=== PATIENT | male | born 1975 | race African-American/Black ===

== ENCOUNTER 2017-05-18 21:57 | Emergency (ER) | payer MEDICAID ==
[~2017-05-18] VITALS: Ht 180.3 cm; Wt 81.6 kg
--- NOTE | 2017-05-18 22:19 | Emergency Room Report ---
History of Present Illness General Chief Complaint: Vomiting Source: Patient, EMS Present Illness HPI 42-year-old male brought in by ambulance with 2 days of nausea vomiting and generalized abd pain Also assoc with diarrhea Denies fever/chills, sick contacts No recent foreign travel No prior abd surgery Denies drug use Allergies: Coded Allergies: No Known Allergies (Unverified , 05/18/17) Patient History Past Medical History: none Past Surgical History: none Pertinent Family History: none Social History: Denies: smoking, alcohol use, drug use Immunizations: UTD Reviewed Nursing Documentation: PMH: Agreed, PSxH: Agreed Nursing Documentation-PMH Past Medical History: No Stated History Review of Systems All Other Systems: negative except mentioned in HPI Physical Exam Vital Signs Date Time Temp Pulse Resp B/P (MAP) Pulse Ox O2 Delivery O2 Flow Rate FiO2 05/18/17 21:50 98.0 86 18 160/98 98 Room Air 98.1 Sp02 EP Interpretation: reviewed, normal General Appearance: normal inspection, well appearing, no apparent distress, alert, GCS 15, non-toxic Head: normocephalic, atraumatic Eyes: bilateral eye PERRL, bilateral eye EOMI ENT: normal ENT inspection, hearing grossly normal, normal pharynx, no angioedema, normal voice, TMs + canals normal, uvula midline, moist mucus membranes Neck: normal inspection, full range of motion, supple, thyroid normal, no meningismus, no bony tend Respiratory: normal inspection, lungs clear, normal breath sounds, no rhonchi, no respiratory distress, no retraction, no accessory muscle use, no wheezing, speaking full sentences Cardiovascular #1: regular rate, rhythm, no edema, no JVD, normal capillary refill Gastrointestinal: normal inspection, normal bowel sounds, non tender, soft, no mass, no peritonitis, non-distended, no guarding, no hernia, no pulsatile mass Genitourinary: no CVA tenderness Musculoskeletal: normal inspection, back normal, normal range of motion, no calf tenderness, pelvis stable, Alba's Sign negative Neurologic: normal inspection, alert, oriented x3, responsive, product development III-XII nml as tested, motor strength/tone normal, cerebellar normal, normal gait, speech normal Psychiatric: normal inspection, judgement/insight normal, mood/affect normal, no suicidal/homicidal ideation, no delusions Skin: normal inspection, normal color, no rash Lymphatic: normal inspection, no adenopathy Medical Decision Making Diagnostic Impression: Primary Impression: Nausea & vomiting Qualified Codes: R11.2 - Nausea with vomiting, unspecified Additional Impressions: Abdominal pain Qualified Codes: R10.84 - Generalized abdominal pain Marijuana abuse Pancolitis ER Course VSS, afebrile Patient repeatedly getting out of stretcher, falling on floor Urinating on bed/floor, diarrhea on floor Asked repeatedly to stay in stretcher Labs significant for mild leukocytosis Utox + for Marijuana CT: walden-colitis. No free air or other acute surgical process. IV ABx given After zofran, versed and haldol for hyperemesis from MJ, patient eventually more calm and cooperative On repeat serial exam, abdomen soft, non-focal Endorsed to Dr Ramesh Fay 6am EKG Diagnostic Results Rate: normal Rhythm: NSR ST Segments: no acute changes ASA given to the pt in ED: No Rhythm Strip Diag. Results EP Interpretation: yes Rate: 65 Rhythm: NSR, no PVC's, no ectopy Last Vital Signs Date Time Temp Pulse Resp B/P (MAP) Pulse Ox O2 Delivery O2 Flow Rate FiO2 05/18/17 21:50 98.0 86 18 160/98 98 Room Air 98.1 Status: improved Disposition: ADMITTED INPATIENT Condition: Serious YAJAIRA ZUNIGA M.D. May 18, 2017 22:19
[2017-05-18 22:20] VITALS: BP 160/98
[2017-05-18] MEDS ORDERED: Morphine Sulfate 2mg/ml Inj IVP ONE (22:30)
[2017-05-18 23:28] LABS: BASOPHILS % (AUTO) 0.8 % (0.0-2.0); EOSINOPHILS % (AUTO) 0.2 % (0.0-3.0); HEMATOCRIT 41.7 % (42.0-52.0); MEAN CORPUSCULAR VOLUME 90 FL (80-99); MONOCYTES % (AUTO) 5.7 % (1.0-10.0); NEUTROPHILS % (AUTO) 66.3 % (45.0-75.0); PLATELET COUNT 249 K/UL (150-450); RED BLOOD COUNT 4.62 M/UL (4.70-6.10); RED CELL DISTRIBUTION WIDTH 13.4 % (11.6-14.8); WHITE BLOOD COUNT 11.5 K/UL (4.8-10.8)
[2017-05-18 23:37] LABS: APPEARANCE,URINE CLEAR; BILIRUBIN, URINE NEGATIVE (NEGATIVE); COLOR,URINE PALE YELLOW; GLUCOSE, URINE (UA) NEGATIVE (NEGATIVE); KETONES,URINE 1+ (NEGATIVE); LEUKOCYTE ESTERASE ,URINE NEGATIVE (NEGATIVE); NITRITE,URINE NEGATIVE (NEGATIVE); PH,URINE 8 (4.5-8.0); PROTEIN,URINE 2+ (NEGATIVE); UROBILINOGEN,URINE NORMAL MG/DL (0.0-1.0)
[2017-05-18 23:49] LABS: ANION GAP 10 mmol/L (5-15); BLOOD UREA NITROGEN 9 mg/dL (7-18); CALCIUM 9.5 MG/DL (8.5-10.1); CARBON DIOXIDE 30 MMOL/L (21-32); CHLORIDE 102 MMOL/L (98-107); CREATININE 1.1 MG/DL (0.55-1.30); POTASSIUM 3.3 MMOL/L (3.5-5.1); SODIUM 142 MMOL/L (136-145)
[2017-05-18 23:53] LABS: ALANINE AMINOTRANSFERASE 26 U/L (12-78); ALBUMIN 4.4 G/DL (3.4-5.0); ALBUMIN/GLOBULIN RATIO 1.2 (1.0-2.7); ALKALINE PHOSPHATASE 75 U/L (46-116); ASPARTATE AMINO TRANSFERASE 18 U/L (15-37); BILIRUBIN,TOTAL 0.4 MG/DL (0.2-1.0)
[2017-05-19] MEDS ORDERED: Midazolam 2mg/2ml Inj IVP ONE
[2017-05-19 00:19] VITALS: BP 122/76
[2017-05-19] MEDS ORDERED: Haloperidol 5mg/ml Inj IM ONE (00:45)
[2017-05-19] MEDS ORDERED: LR 1000ml 1,000 ML IV STA (01:54)
[2017-05-19] MEDS ORDERED: Zosyn 3.375gm inj ONE (01:57)
[2017-05-19] MEDS ORDERED: Piperacillin/Tazobactam 3.375 GM in NS 110 ML IVPB ONE (02:00)
[2017-05-19 02:14] VITALS: BP 102/70
[2017-05-19] MEDS ORDERED: LORazepam Inj 2mg/ml 1ml IV ONE (03:00)
[2017-05-19 04:30] VITALS: BP 144/73
[2017-05-19 07:09] VITALS: BP 162/99
[2017-05-19 07:12] VITALS: BP 162/99
--- NOTE | 2017-05-19 10:22 | Diagnostic Imaging Report ---
Clinical Indication: Abdominal pain Technique: No oral contrast utilized, per emergency room physician request IV administration nonionic contrast. Venous phase spiral acquisition obtained through the abdomen and pelvis. Multiplanar reconstructions were generated. Total dose length product 623.84 mGycm. CTDIvol(s) 10.92 mGy. Dose reduction achieved using automated exposure control Comparison: none Findings: The appendix is normal. There is equivocally mild wall thickening of the ascending colon, but this probably is artifact of under distention. No evidence of diverticulosis or diverticulitis. No free or loculated intraperitoneal air or fluid is evident. No small bowel distention. Distal esophagus, stomach, duodenum are unremarkable. There is a tiny fat-containing umbilical hernia The liver, gallbladder, bile ducts, pancreas, spleen, adrenals, kidneys are unremarkable. No retroperitoneal or mesenteric mass or adenopathy. No pelvic mass or adenopathy. A calcification is seen within the prostate. There are bilateral scrotal hydroceles incidentally noted. The right testicle appears to be partially within the inguinal canal The included lung bases are clear. There is trace posterior pericardial thickening versus fluid The bones are unremarkable Impression: Equivocal mild wall thickening of the ascending colon, likely an artifact of under distention but colitis not excludable No acute process otherwise Right testicle partially within the inguinal canal, could indicate transient retraction versus incomplete testicular dissent Incidental finding bilateral scrotal hydroceles Incidental finding tiny fat-containing umbilical hernia, trace pericardial fluid This agrees with the preliminary interpretation provided overnight by [facility]erad[facility]. The CT scanner at [facility] is accredited by the [employer] and the scans are performed using protocols designed to limit radiation exposure to as low as reasonably achievable to attain images of sufficient resolution adequate for diagnostic evaluation.
--- NOTE | 2017-05-20 08:34 | Cardiology Report ---
APPROVED REPORT EKG Measurement Heart [id number] Normal sinus rhythm with sinus arrhythmia Normal ECG
== END 2017-05-19 07:14 | disposition short-term general hospital (02) ==
LOC: EDBD 21:57 → EMR 05-19 03:10
DX: K51.00 Ulcerative (chronic) pancolitis without complications (principal); R11.2 Nausea with vomiting, unspecified; R10.84 Generalized abdominal pain; F12.10 Cannabis abuse, uncomplicated; D72.829 Elevated white blood cell count, unspecified
CPT/HCPCS: 36415; 74177; 80053; 80307; 81003; 83605; 83690; 84484; 85025; 93005; 96372; 96374; 96375; 99285; J1630; J1956; J2250; J2270; J2405; J2543; J7120; Q9967

== ENCOUNTER 2017-12-23 18:00 | Emergency (ER) | payer MEDICAID ==
[~2017-12-23] VITALS: Ht 180.3 cm; Wt 90.7 kg
--- NOTE | 2017-12-23 18:23 | Emergency Room Report ---
History of Present Illness General Chief Complaint: Abdominal Pain Source: Patient Present Illness HPI Patient is a 42-year-old male who presented after increased abdominal discomfort. Patient reports having increased episodes of vomiting. The patient reports having similar symptoms in the past. The patient was having increased nausea and vomiting. He denies any hematemesis. The patient states that he smokes marijuana but not every day. He denies any cigarette smoking. He denies any bilious vomiting. Allergies: Coded Allergies: No Known Allergies (Unverified , 05/18/17) Patient History Past Medical History: see triage record Reviewed Nursing Documentation: PMH: Agreed; PSxH: Agreed Nursing Documentation-PMH Past Medical History: No Stated History Review of Systems All Other Systems: negative except mentioned in HPI Physical Exam Vital Signs Date Time Temp Pulse Resp B/P (MAP) Pulse Ox O2 Delivery O2 Flow Rate FiO2 12/23/17 17:54 99.1 70 20 149/91 98 Room Air 99.1 Sp02 EP Interpretation: reviewed, normal General Appearance: normal inspection, well appearing, no apparent distress, alert, GCS 15 Head: atraumatic ENT: normal ENT inspection, hearing grossly normal, normal voice Neck: normal inspection, full range of motion, supple, no bony tend Respiratory: normal inspection, lungs clear, normal breath sounds, no respiratory distress, no retraction, no wheezing Cardiovascular #1: regular rate, rhythm, no edema Gastrointestinal: normal inspection, normal bowel sounds, non tender, soft, no guarding, no hernia Genitourinary: no CVA tenderness Musculoskeletal: normal inspection, back normal, normal range of motion Neurologic: normal inspection, alert, oriented x3, responsive, senior information security analyst III-XII nml as tested, speech normal Psychiatric: normal inspection, judgement/insight normal, mood/affect normal Skin: normal inspection, normal color, no rash Medical Decision Making Diagnostic Impression: Primary Impression: Abdominal pain Additional Impression: Gastroenteritis ER Course Patient presented for abdominal pain. Differential diagnoses included ischemic bowel, appendicitis, perforated viscus, abdominal aortic aneurysm, inferior myocardial infarction, viral gastroenteritis Because of complexity of patient's case laboratory testing and imaging studies were ordered. The patient was noted to have the similar symptoms in the past. The previous CT showed no evidence of acute findings. The patient was noted to have a umbilical hernia which do not contain any bowel loops. Patient was given IV fluids as well as antiemetics.The patient given acid blockers. EKG interpreted by me showed normal sinus rhythm without acute ST or T wave changes. There is no QT prolongation.The patient was discharged home. The patient is advised to follow up with primary care doctor in 1-2 days. Patient is advised to return if any worsening condition or if any changes in status that are concerning. This report is dictated with [employer] railroad car repairman software which may occasionally lead to discrepancies related to use of this software. Labs Test 12/23/17 18:12 White Blood Count 12.1 K/UL (4.8-10.8) Red Blood Count 5.32 M/UL (4.70-6.10) Hemoglobin 15.4 G/DL (14.2-18.0) Hematocrit 47.9 % (42.0-52.0) Mean Corpuscular Volume 90 FL (80-99) Mean Corpuscular Hemoglobin 28.9 PG (27.0-31.0) Mean Corpuscular Hemoglobin Concent 32.1 G/DL (32.0-36.0) Red Cell Distribution Width 12.7 % (11.6-14.8) Platelet Count 270 K/UL (150-450) Mean Platelet Volume 6.0 FL (6.5-10.1) Neutrophils (%) (Auto) 64.9 % (45.0-75.0) Lymphocytes (%) (Auto) 24.7 % (20.0-45.0) Monocytes (%) (Auto) 8.6 % (1.0-10.0) Eosinophils (%) (Auto) 0.5 % (0.0-3.0) Basophils (%) (Auto) 1.3 % (0.0-2.0) Prothrombin Time 10.7 SEC (9.30-11.50) Prothromb Time International Ratio 1.0 (0.9-1.1) Activated Partial Thromboplast Time 27 SEC (23-33) Sodium Level 136 MMOL/L (136-145) Potassium Level 3.1 MMOL/L (3.5-5.1) Chloride Level 97 MMOL/L (98-107) Carbon Dioxide Level 26 MMOL/L (21-32) Anion Gap 13 mmol/L (5-15) Blood Urea Nitrogen 12 mg/dL (7-18) Creatinine 1.2 MG/DL (0.55-1.30) Estimat Glomerular Filtration Rate > 60 mL/min (>60) Glucose Level 94 MG/DL (74-106) Calcium Level 9.7 MG/DL (8.5-10.1) Total Bilirubin 0.9 MG/DL (0.2-1.0) Aspartate Amino Transf (AST/SGOT) 36 U/L (15-37) Alanine Aminotransferase (ALT/SGPT) 38 U/L (12-78) Alkaline Phosphatase 78 U/L (46-116) Troponin I 0.013 ng/mL (0.000-0.056) Total Protein 8.7 G/DL (6.4-8.2) Albumin 4.6 G/DL (3.4-5.0) Globulin 4.1 g/dL Albumin/Globulin Ratio 1.1 (1.0-2.7) Lipase 77 U/L (73-393) Last Vital Signs Date Time Temp Pulse Resp B/P (MAP) Pulse Ox O2 Delivery O2 Flow Rate FiO2 12/23/17 17:54 99.1 70 20 149/91 98 Room Air 99.1 Status: improved Disposition: HOME, SELF-CARE Condition: Stable Scripts Omeprazole (OMEPRAZOLE) 20 Mg Capsule.dr 20 MG ORAL DAILY, #20 CAP Prov: Bony Negrete MD 12/23/17 Ondansetron (Zofran) 4 Mg Tablet 4 MG ORAL Q6H PRN for Nausea & Vomiting, #30 TAB 0 Refills Prov: Bony Negrete MD 12/23/17 Loperamide HCl (Loperamide) 2 Mg Capsule 2 MG ORAL Q12HR, #20 CAP 0 Refills Prov: Bony Negrete MD 12/23/17 Referrals: [facility],REFERRING (PCP) Bony Negrete MD Dec 23, 2017 18:23
[2017-12-23 18:25] VITALS: BP 145/75
[2017-12-23 18:35] LABS: BASOPHILS % (AUTO) 1.3 % (0.0-2.0); EOSINOPHILS % (AUTO) 0.5 % (0.0-3.0); HEMATOCRIT 47.9 % (42.0-52.0); HEMOGLOBIN 15.4 G/DL (14.2-18.0); LYMPHOCYTES % (AUTO) 24.7 % (20.0-45.0); MEAN CORPUSCULAR VOLUME 90 FL (80-99); MONOCYTES % (AUTO) 8.6 % (1.0-10.0); NEUTROPHILS % (AUTO) 64.9 % (45.0-75.0); PLATELET COUNT 270 K/UL (150-450); RED BLOOD COUNT 5.32 M/UL (4.70-6.10); RED CELL DISTRIBUTION WIDTH 12.7 % (11.6-14.8); WHITE BLOOD COUNT 12.1 K/UL (4.8-10.8)
[2017-12-23 18:45] LABS: ANION GAP 13 mmol/L (5-15); BLOOD UREA NITROGEN 12 mg/dL (7-18); CALCIUM 9.7 MG/DL (8.5-10.1); CARBON DIOXIDE 26 MMOL/L (21-32); CHLORIDE 97 MMOL/L (98-107); CREATININE 1.2 MG/DL (0.55-1.30); POTASSIUM 3.1 MMOL/L (3.5-5.1); SODIUM 136 MMOL/L (136-145)
[2017-12-23] MEDS ORDERED: Dicyclomine HCl 10mg/5ml oral soln ORAL ONE (18:45)
[2017-12-23] MEDS ORDERED: Lidocaine 2% Visc 15ml soln ORAL ONE (18:45)
[2017-12-23 18:50] LABS: ALANINE AMINOTRANSFERASE 38 U/L (12-78); ALBUMIN 4.6 G/DL (3.4-5.0); ALBUMIN/GLOBULIN RATIO 1.1 (1.0-2.7); ALKALINE PHOSPHATASE 78 U/L (46-116); ASPARTATE AMINO TRANSFERASE 36 U/L (15-37); BILIRUBIN,TOTAL 0.9 MG/DL (0.2-1.0)
[2017-12-23] MEDS ORDERED: Haloperidol 5mg/ml Inj IM ONE (19:30)
[2017-12-23 19:41] LABS: APPEARANCE,URINE SLIGHTLY CLOUDY; BILIRUBIN, URINE 1+ (NEGATIVE); COLOR,URINE AMBER; GLUCOSE, URINE (UA) NEGATIVE (NEGATIVE); KETONES,URINE 4+ (NEGATIVE); LEUKOCYTE ESTERASE ,URINE 1+ (NEGATIVE); NITRITE,URINE NEGATIVE (NEGATIVE); PH,URINE 6 (4.5-8.0); PROTEIN,URINE 2+ (NEGATIVE); UROBILINOGEN,URINE 1 MG/DL (0.0-1.0)
[2017-12-23] MEDS ORDERED: OMEPRAZOLE20 M2 ORAL (20:58)
[2017-12-23] MEDS ORDERED: ZOFRAN4 MG ORAL (20:58)
[2017-12-23] MEDS ORDERED: IMODIUM2 MG ORAL (20:58)
[2017-12-23 22:10] VITALS: BP 145/75
--- NOTE | 2017-12-31 13:41 | Cardiology Report ---
APPROVED REPORT EKG Measurement Heart [id number] Normal sinus rhythm Normal ECG
== END 2017-12-23 22:06 | disposition home or self-care (01) ==
LOC: EDBD 18:00 → EMR 18:19
DX: K52.9 Noninfective gastroenteritis and colitis, unspecified (principal)
CPT/HCPCS: 36415; 80053; 81003; 83690; 84484; 85025; 85610; 85730; 87086; 93005; 96372; 96374; 96375; 99284; J1630; J2405; S0028; J8499